=== PATIENT | female | born 1950 | race Caucasian/White ===

== ENCOUNTER 2017-10-11 07:37 | Day surgery (SDC) | payer MEDICARE, OTHER ==
[~2017-10-11 07:37] MED LIST: LIDOCAINE HCL 1% MPF SOL ONE; PROPOFOL 500 MG/50 ML EMU IV ONE
[2017-10-11 09:45] VITALS: RESP 20; TEMP 97.5
[2017-10-11 09:58] VITALS: BP 132/83; PULSE 75; O2SAT 100
== END 2017-10-11 10:10 | disposition home or self-care (01) | DRG 951 ==
LOC: SURG 07:37
PROVIDERS: ATTEND Surgery
DX: Z12.11 Encounter for screening for malignant neoplasm of colon (principal); K22.9 Disease of esophagus, unspecified; K44.9 Diaphragmatic hernia without obstruction or gangrene; K63.5 Polyp of colon
CPT/HCPCS: J2001; J2704

== ENCOUNTER 2018-01-09 08:34 | Day surgery (SDC) | payer MEDICARE, OTHER ==
[2018-01-09 10:25] VITALS: TEMP 98.4
[2018-01-09 10:47] VITALS: RESP 18; O2SAT 98
[2018-01-09 10:53] VITALS: BP 122/83; PULSE 78
== END 2018-01-09 11:00 | disposition home or self-care (01) | DRG 382 ==
LOC: SURG 08:34
PROVIDERS: ATTEND Internal Medicine Gastroenterology
DX: K22.10 Ulcer of esophagus without bleeding (principal); K29.70 Gastritis, unspecified, without bleeding; K31.89 Other diseases of stomach and duodenum; K44.9 Diaphragmatic hernia without obstruction or gangrene
CPT/HCPCS: J2001; J2704